=== PATIENT | female | born 1980 | race American Indian/Alaskan Native ===

== ENCOUNTER 2021-03-09 12:11 | Outpatient (CLI) | payer OTHER ==
[2021-03-09 12:44] LABS: Basophils % (Auto) 0.5 % (0.0-1.8); Eosinophils # (Auto) 0.1 K/mm3 (0.0-0.4); Hemoglobin 10.8 gm/dl (10.1-14.3); Lymphocytes # (Auto) 2.1 K/mm3 (1.2-5.4); Lymphocytes % (Auto) 23.9 % (13.4-35.0); Mean Corpuscular HGB Conc 33 % (30-34); Mean Corpuscular Volume 79 fl (79-97); Monocytes # (Auto) 0.6 K/mm3 (0.0-0.8); Monocytes % (Auto) 6.3 % (0.0-7.3); Platelet Count 254 K/mm3 (140-440); Red Cell Distribution Width 16.7 % (13.2-15.2)
[2021-03-09 13:39] LABS: % Iron Saturation 8.37 %; Alanine Aminotransferase 9 units/L (7-56); Blood Urea Nitrogen 10 mg/dL (7-17); Calcium 8.6 mg/dL (8.4-10.2); Chol/HDL Ratio 4.26 %; HDL Cholesterol 38 mg/dL (40-59); Hemolysis Index 0; Iron 35 ug/dL (37-170); LDL Cholesterol,Direct 121 mg/dL (50-130); Total Iron Binding Capacity 418 mcg/dL (250-450)
[2021-03-09 13:42] LABS: BUN/Creatinine Ratio 17
== END 2021-03-09 12:12 | disposition home or self-care (01) ==
LOC: LAB 12:11
PROVIDERS: ATTEND Surgery
DX: E11.9 Type 2 diabetes mellitus without complications (principal); E66.01 Morbid (severe) obesity due to excess calories; K30 Functional dyspepsia
CPT/HCPCS: 36415; 80053; 80061; 82306; 82607; 82728; 83036; 83550; 84443; 85025; 85730

== ENCOUNTER 2021-06-07 11:00 | Outpatient (CLI) | payer OTHER | END 2021-06-07 11:01 | disposition home or self-care (01) | LOC: SLR 11:00 | PROVIDERS: ATTEND Surgery | DX: G47.30 Sleep apnea, unspecified (principal) | CPT/HCPCS: 95810 ==